=== PATIENT | male | born 1975 | race Caucasian/White ===

== ENCOUNTER 2023-01-25 12:35 | Emergency (ER) | payer OTHER ==
[~2023-01-25] VITALS: Ht 165.1 cm; Wt 118.6 kg
[~2023-01-25 12:35] MED LIST: ATENOLOL100 MG PO; LIPITOR40 MG PO; LISINOPRIL-HCT1 EACH PO; METFORMIN HCL1000 MG PO; PENICILLIN V P500 MG PO; PERCOCET 5-3251 EACH PO
[2023-01-25] MEDS ORDERED: HUMULIN 70100 UNIT/3 SUB-Q (12:54)
[2023-01-25] MEDS ORDERED: LANTUS100 UNITS/ SUB-Q (12:54)
[2023-01-25 13:50] VITALS: BP 118/73
== END 2023-01-25 13:52 | disposition home or self-care (01) ==
LOC: ED 12:35
DX: S90.32XA Contusion of left foot, initial encounter (principal); E11.9 Type 2 diabetes mellitus without complications; I10 Essential (primary) hypertension; X58.XXXA Exposure to other specified factors, initial encounter; Z79.4 Long term (current) use of insulin; Z79.899 Other long term (current) drug therapy
CPT/HCPCS: 73630; 99283-25

== ENCOUNTER 2023-10-08 08:32 | Emergency (ER) | payer OTHER ==
[~2023-10-08] VITALS: Ht 165.1 cm; Wt 123.0 kg
[~2023-10-08 08:32] MED LIST changes: +ALOGLIPTIN12.5 MG PO; +DIFLUCAN200 MG PO; +HUMULIN 70100 UNIT/3 SUB-Q; +JARDIANCE10 MG PO; +LANTUS100 UNITS/ SUB-Q; +SERTRALINE HCL150 MG PO
[2023-10-08 09:13] VITALS: BP 156/110
== END 2023-10-08 09:14 | disposition home or self-care (01) ==
LOC: ED 08:32
DX: L02.11 Cutaneous abscess of neck (principal); I10 Essential (primary) hypertension; E11.9 Type 2 diabetes mellitus without complications; E78.5 Hyperlipidemia, unspecified; Z79.84 Long term (current) use of oral hypoglycemic drugs; Z79.4 Long term (current) use of insulin; Z79.899 Other long term (current) drug therapy
CPT/HCPCS: 99282

== ENCOUNTER 2024-07-11 13:03 | Emergency (ER) | payer OTHER ==
[~2024-07-11] VITALS: Ht 165.1 cm; Wt 130.2 kg
[~2024-07-11 13:03] MED LIST changes: +OZEMPIC0.25 MG/02
--- OUTSIDE RECORDS SUMMARY | 2024-07-11 13:10 | XMS ---
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 EDinorah VISIT COUNT (12 MO.) 4 TONEY Allen [facility] ([place]) TOTAL 5 NOTE: Visits indicate total known visits. 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 - [place] [facility] [place] therapy - Patient's other noncompliance with medication regimen for other reason - Type 2 diabetes mellitus with hyperglycemia 12/16/2023 17:52 TONEY Elkins TYPE: Emergency COMPLAINT: - SKIN PROBLEM DIAGNOSES: - Candidal balanitis - Essential (primary) hypertension - Hyperlipidemia, unspecified - nursing home (current) use of insulin - 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 - Long-term (current) use of injectable non-insulin antidiabetic drugs - Other remote computer terminal operator (current) drug therapy - Other specified disorders of penis - Type 2 diabetes mellitus without complications 10/08/2023 08:33 OTNEY Elkins TYPE: Emergency COMPLAINT: - WOUND CHECK DIAGNOSES: - Cutaneous abscess of neck - Essential (primary) hypertension - Hyperlipidemia, unspecified - predatory animal exterminator (current) use of insulin - nursing home (current) use of oral hypoglycemic drugs - Other [place] [facility] [place] (current) drug therapy - Type 2 diabetes mellitus without complications INPATIENT VISIT TRACKING (12 MO.) No inpatient visits to display in this time frame [email or web address]
[2024-07-11] MEDS ORDERED: SODIUM CHLORIDE 0.9% 1,000 ML IV ONE (13:30)
[2024-07-11] MEDS ORDERED: LIPITOR80 MG PO (13:37)
[2024-07-11 13:44] LABS: BASOPHILS 1.5 % (0-2); EOSINOPHILS 0.8 % (0-6); HEMATOCRIT 45.4 % (35.0-50.0); HEMOGLOBIN 16.1 g/dL (12.0-18.0); LYMPHOCYTES 22.4 % (24-44); MCH 30.6 (27-36); MCHC 35.4 g/dl (30-36); MCV 86.3 fl (81-99); MONOCYTES 5.8 % (0-12); NEUTROPHILS 69.5 % (39-80); PLATELET COUNT 304 K/uL (140-440); RBC 5.27 M/ul (4.3-5.7); RDW 13.5 (10.5-15.0)
[2024-07-11] MEDS ORDERED: Insulin Regular, Human 100 UNIT/ML ML SUB-Q ONE (13:45)
[2024-07-11 13:58] LABS: ALBUMIN 3.7 g/dL (3.4-5.0); ALBUMIN/GLOBULIN RATIO 1.03 (1.1-2.4); ANION GAP 9.1 (7-21); BILIRUBIN, TOTAL 0.7 ng/dL (0.2-1.0); BUN/CREATININE RATIO 12.12 (6.0-28.6); CALCIUM 8.8 mg/dL (8.5-10.1); CREATININE, SERUM 1.32 mg/dL (0.70-1.30); POTASSIUM 4.1 mmol/L (3.5-5.1); PROTEIN, TOTAL 7.3 g/dL (6.4-8.2)
[2024-07-11 14:52] LABS: BILIRUBIN, URINE NEGATIVE (negative); BLOOD/HGB, URINE NEGATIVE (Negative); KETONE, URINE NEGATIVE (Negative); LEUK ESTERASE, URINE NEGATIVE (negative); NITRITE, URINE NEGATIVE (negative)
[2024-07-11] MEDS ORDERED: METFORMIN HCL500 MG PO (15:47)
[2024-07-11 16:00] VITALS: BP 126/75
[2024-07-11] MEDS ORDERED: metFORMIN HCL 500 MG TAB PO ONE (16:00)
== END 2024-07-11 16:00 | disposition home or self-care (01) ==
LOC: ED 13:03
PROVIDERS: Emergency Medicine
DX: E11.65 Type 2 diabetes mellitus with hyperglycemia (principal); I10 Essential (primary) hypertension; E78.5 Hyperlipidemia, unspecified; Z79.4 Long term (current) use of insulin; Z79.899 Other long term (current) drug therapy
CPT/HCPCS: 36415; 80053; 81003; 83036; 85025; 96372; 99283; J1815; J7030